=== PATIENT | female | born 1975 | race Caucasian/White ===

== ENCOUNTER 2021-01-05 09:06 | Emergency (ER) | payer BC, OTHER ==
[~2021-01-05] VITALS: Ht 167.6 cm; Wt 76.2 kg
[2021-01-05 09:41] LABS: APPEARANCE,URINE Clear (CLEAR); BILIRUBIN,URINE Negative (NEGATIVE); COLOR,URINE Yellow (YELLOW); GLUCOSE, URINE (UA) Negative (NEGATIVE); KETONES,URINE Negative (NEGATIVE); LEUKOCYTE ESTERASE ,URINE Negative (NEGATIVE); NITRATE,URINE Negative (NEGATIVE); OCCULT BLOOD,URINE Negative (NEGATIVE); PH,URINE 6.5 (5.0-8.0); PROTEIN,URINE Negative (NEGATIVE)
[2021-01-05 09:52] LABS: BASOPHILS % (AUTO) 1.9 % (0.0-5.0); HEMATOCRIT 44.5 % (36-48); LYMPHOCYTES % (AUTO) 32.1 % (21.0-51.0); MEAN CORPUSCULAR HEMOGLOBIN 32.7 pg (27.0-33.0); MEAN CORPUSCULAR HGB CONC 33.9 g/dL (32.0-36.0); MEAN CORPUSCULAR VOLUME 96.3 fL (79-99); MONOCYTES % (AUTO) 6.7 % (3.0-13.0); NEUTROPHILS % (AUTO) 56.1 % (40.0-77.0); PLATELET COUNT (AUTO) 300 K/uL (130-400); RED BLOOD CELL COUNT(AUTO) 4.62 MIL/uL (4.00-5.50); RED CELL DISTRIBUTION WIDTH 12.8 % (11.0-15.5); WHITE BLOOD COUNT (AUTO) 5.4 K/uL (4.8-10.8)
[2021-01-05] MEDS ORDERED: 0.9%NACL 1000ML 1,000 ML IV SCH (10:00)
[2021-01-05] MEDS ORDERED: KETOROLAC 30MG VIAL (30MG/ML) IV SCH (10:00)
[2021-01-05] MEDS ORDERED: PROCHLORPERAZINE 10MG/2ML INJ IVP SCH (10:00)
[2021-01-05 10:12] LABS: ALBUMIN 3.7 g/dL (3.5-5.0); BILIRUBIN,TOTAL 0.2 mg/dL (0.2-1.0); CREATININE 0.8 mg/dL (0.5-1.5); POTASSIUM 4.1 mmol/L (3.5-5.1); TOTAL PROTEIN, SERUM 6.5 g/dL (6.0-8.3)
[2021-01-05 12:27] VITALS: BP 106/70
[2021-01-05] MEDS ORDERED: FAMO-136 PO (12:46)
== END 2021-01-05 14:05 | disposition home or self-care (01) ==
LOC: EDH 09:06
DX: K29.70 Gastritis, unspecified, without bleeding (principal)
CPT/HCPCS: 36415; 74176; 80053; 81003; 83690; 84484; 85025; 93005; 96361; 96374; 96375; 99285; J0780; J1885

== ENCOUNTER → 2021-03-14 | Outpatient (CLI) | payer OTHER ==
[~2021-03-14] MED LIST: FAMO-136 PO
== END | disposition home or self-care (01) ==
LOC: RAH 13:29
PROVIDERS: ATTEND Family Medicine
DX: R06.01 Orthopnea (principal); R60.0 Localized edema; R42 Dizziness and giddiness
CPT/HCPCS: 93306; 93356

== ENCOUNTER 2021-04-06 08:50 | Emergency (ER) | payer OTHER ==
[~2021-04-06] VITALS: Ht 167.6 cm; Wt 74.8 kg
[2021-04-06] MEDS ORDERED: AMOX-429 PO (10:26)
[2021-04-06] MEDS ORDERED: ACET1TAB25 PO (10:26)
[2021-04-06] MEDS ORDERED: IBUP-2070 PO (10:26)
[2021-04-06] MEDS ORDERED: IBUPROFEN 600 MG TABLET PO ONE (10:30)
[2021-04-06] MEDS ORDERED: HYDROCODONE/ACETAMINOPHEN 5/325 MG TAB PO ONE (10:30)
[2021-04-06] MEDS ORDERED: AMOX/CLAV 875/125MG TAB PO ONE (10:30)
[2021-04-06 11:07] VITALS: BP 126/78
== END 2021-04-06 11:08 | disposition home or self-care (01) ==
LOC: EDH 08:50
DX: H66.91 Otitis media, unspecified, right ear (principal); R50.9 Fever, unspecified; Z79.1 Long term (current) use of non-steroidal anti-inflammatories (NSAID); Z88.8 Allergy status to other drugs, medicaments and biological substances

== ENCOUNTER → 2021-04-27 | Outpatient (CLI) | payer OTHER ==
[~2021-04-27] MED LIST changes: +ACET1TAB25 PO; +AMOX-429 PO; +IBUP-2070 PO
== END | disposition home or self-care (01) ==
LOC: LAB 09:56
PROVIDERS: ATTEND Internal Medicine Cardiovascular Disease
DX: U07.1 COVID-19 (principal)
CPT/HCPCS: 87635; C9803